=== PATIENT | female | born 1990 | race Two or more races ===

== ENCOUNTER 2025-06-03 23:20 | Emergency (ER) | payer OTHER ==
[~2025-06-03] VITALS: Ht 170.2 cm; Wt 92.5 kg
[~2025-06-03 23:20] MED LIST: CLARINEX5 MG/TAB PO; PROVENTIL3 ML/2.5 M IH; ROBITUSSIN100 MG/53 PO
[2025-06-04 00:08] VITALS: BP 124/86; O2SAT 97
[2025-06-04] MEDS ORDERED: HYOSCYAMINE SULFATE 0.125 MG TAB.SUBL SL STA (01:27)
[2025-06-04] MEDS ORDERED: LACTOBACILLUS ACIDOPHILUS 1 CAP CAP PO STA (01:27)
[2025-06-04] MEDS ORDERED: 0.9 % SODIUM CHLORIDE 1,000 ML IV ONE (01:30)
[2025-06-04] MEDS ORDERED: LACTOBACILLUS ACIDOPHILUS 1 CAP CAP PO ONE (02:25)
[2025-06-04] MEDS ORDERED: HYOSCYAMINE SULFATE 0.125 MG TAB.SUBL ONE (02:25)
[2025-06-04 03:31] LABS: BASO % 0.6 % (0.1-1.2); EOS # 0.46 (0.04-0.54); EOS % 5.4 % (0.7-7.0); LYMPH # 2.59 (1.18-3.74); LYMPH % 30.2 % (19.3-53.1); MEAN PLATELET VOLUME 9.20 fl (9.4-12.4); MONO # 0.70 (0.24-0.82); MONO % 8.2 % (4.7-12.5); NEUT # 4.72 (1.56-6.13); NEUT % 54.9 % (34.0-71.1); RED CELL DISTRIBUTION WIDTH 11.2 % (11.6-14.4)
[2025-06-04 03:52] LABS: INR 1.02
[2025-06-04 03:56] LABS: ALT/SGPT 59.0 U/L (12-78); AST/SGOT 30.0 U/L (15-37); BILIRUBIN TOTAL 0.83 mg/dL (0.3-1.2); BUN CREA RATIO 9.0 (7.0-25.0); CREATININE SERUM 0.87 mg/dL (0.55-1.02); GFR 74.09; GLOBULINA 4.2 G/DL (2.4-3.5); GLUCOSE FASTING 103.0 mg/dL (65-100); OSMOLALITY SERUM 272.0 MOSM/KG (275-295)
[2025-06-04 04:39] LABS: URINE APPEARANCE Clear; URINE BILIRRUBIN Negative (NEGATIVE); URINE BLOOD Moderate; URINE COLOR Yellow; URINE GLUCOSE Negative (NEGATIVE); URINE LEUKOCYTE Negative; URINE NITRATE Negative; URINE PROTEIN Trace (NEGATIVE); URINE UROBILINOGEN 0.2 E.U./dl
[2025-06-04 04:43] LABS: URINE BACTERIA 1281.6 uL (0.0-1933); URINE EPITHELIAL CELLS 7.2 uL (0.0-38.8); URINE RBC 15.1 uL (0.0-20.8); URINE WBC 6.0 uL (0.0-23.2)
[2025-06-04 05:07] LABS: URINE CAST 0.00 uL (0.0-1.40); URINE KETONE 40 (NEGATIVE)
[2025-06-04] MEDS ORDERED: CIPROFLOXACIN IN 5 % DEXTROSE 400 MG/200 ML PIGGYBAG IV STA (07:40)
[2025-06-04] MEDS ORDERED: CIPRO500 MG PO (07:44)
[2025-06-04] MEDS ORDERED: INTESTINEX680 M1 PO (07:44)
[2025-06-04] MEDS ORDERED: LEVSIN/SL0.125 MG SL (07:44)
[2025-06-04] MEDS ORDERED: CIPROFLOXACIN IN 5 % DEXTROSE 400 MG/200 ML PIGGYBAG IV ONE (07:48)
== END 2025-06-04 09:43 ==
LOC: ER 23:20
PROVIDERS: General Practice
DX: K52.9 Noninfective gastroenteritis and colitis, unspecified (principal); K62.5 Hemorrhage of anus and rectum; R10.9 Unspecified abdominal pain; A08.8 Other specified intestinal infections; R11.10 Vomiting, unspecified
CPT/HCPCS: 36415; 74177; Q9965